=== PATIENT | male | born 1970 | race Caucasian/White ===

== ENCOUNTER 2021-01-21 07:14 | Day surgery (SDC) | payer MEDICAID ==
[2021-01-21] VITALS (12 sets, daily range): BP systolic 113–153; BP diastolic 75–97
[~2021-01-21] VITALS: Ht 172.7 cm; Wt 203.0 kg
[2021-01-21] MEDS ORDERED: RIVA20TA PO (07:44)
[2021-01-21] MEDS ORDERED: fentaNYL/PF 50MCG/1 ML 2ML syringe ONE (08:33)
[2021-01-21] MEDS ORDERED: midazolam 1 mg/ML 2ml injection ONE ×2 (08:33→09:30)
[2021-01-21] MEDS ORDERED: LIDOcaine 1% (10mg/ml)w/preservative injection 20ml MDV ONE (08:34)
[2021-01-21] MEDS ORDERED: heparin 1,000unit/ml 10ml vial 10 ML ONE (08:34)
[2021-01-21] MEDS ORDERED: iohexol 350MG/ML 100ml bottle IV ONE (08:34)
[2021-01-21] MEDS ORDERED: iohexol 350 MG/ML 50ML vial IV ONE (08:34)
[2021-01-21] MEDS ORDERED: diphenhydrAMINE 25mg capsule PO ONE (09:05)
[2021-01-21] MEDS ORDERED: LORazepam 0.5 MG tablet PO PRN (09:05)
[2021-01-21] MEDS ORDERED: normal saline 1000ml 1,000 ML IV SCH (09:25)
[2021-01-21] MEDS ORDERED: nitroGLYCERIN 0.4mg SUBLingual tab SL PRN (09:25)
[2021-01-21] MEDS ORDERED: proCHLORperazine 10 MG/2 ml inj IV PRN (10:30)
[2021-01-21] MEDS ORDERED: ondansetron/PF 4mg/2ml inj IV PRN (10:30)
[2021-01-21] MEDS ORDERED: OXAZEpam 15mg capsule PO PRN (10:30)
[2021-01-21] MEDS ORDERED: HYDROcodone/acetaminophen 10/325mg tab PO PRN (10:30)
[2021-01-21] MEDS ORDERED: HYDROcodone/acetaminophen 5mg/325mg tablet PO PRN (10:30)
--- NOTE | 2021-01-21 12:49 | NUR ---
Report to Diana Mcdonald/[facility]-pt mackenzie [facility]WAY/ADDISON Addendum: 01/21/21 at 1249 by Genoveva Umaña RN Amended: Links added.
== END 2021-01-21 17:00 | disposition home or self-care (01) ==
LOC: SSTAY O 07:14
PROVIDERS: ATTEND Internal Medicine Cardiovascular Disease
DX: R94.39 Abnormal result of other cardiovascular function study (principal); I25.10 Atherosclerotic heart disease of native coronary artery without angina pectoris; M86.8X6 Other osteomyelitis, lower leg; M19.90 Unspecified osteoarthritis, unspecified site; Z86.711 Personal history of pulmonary embolism; Z86.718 Personal history of other venous thrombosis and embolism; Z86.14 Personal history of Methicillin resistant Staphylococcus aureus infection; G47.33 Obstructive sleep apnea (adult) (pediatric); Z72.89 Other problems related to lifestyle; F17.220 Nicotine dependence, chewing tobacco, uncomplicated; Z88.8 Allergy status to other drugs, medicaments and biological substances; Z79.899 Other long term (current) drug therapy
CPT/HCPCS: 93458; 99152; C1760; C1769; J1644; J2001; J2250; J3010; Q9967; 99153; A4620; A6258